=== PATIENT | female | born 1980 | race Caucasian/White ===

== ENCOUNTER → 2021-06-28 | Outpatient (CLI) | payer BC ==
--- NOTE | 2021-06-29 04:39 | MR ---
EXAMINATION TYPE: MR knee LT wo con DATE OF EXAM: 06/28/2021 COMPARISON: None HISTORY: Left knee pain, painful kneecap, and swelling for 2-4 weeks. Multiplanar multiecho imaging of the left knee without contrast. The anterior and posterior cruciate ligaments are intact. There is a mild knee joint effusion. There is vertical tear through the anterior horn of the lateral meniscus. There is large horizontal tear th rough the posterior horn of the medial meniscus extending to the inferior surface. The collateral lig aments are intact. There is some minimal subcutaneous edema around the knee. There is no evidence of a fracture. I see no focal bone destruction. IMPRESSION: Large horizontal tear of the posterior horn medial meniscus. Vertical tear through the anterior horn lateral meniscus. Knee joint effusion. No evidence of ligamentous tear.
== END | disposition home or self-care (01) ==
LOC: RADMRIMAIN 16:48
PROVIDERS: ATTEND Physician Assistant
DX: M23.322 Other meniscus derangements, posterior horn of medial meniscus, left knee (principal); M23.342 Other meniscus derangements, anterior horn of lateral meniscus, left knee

== ENCOUNTER 2022-03-30 22:44 | Emergency (ER) | payer BC ==
[2022-03-30 22:52] VITALS: TEMP 98.1
--- NOTE | 2022-03-31 03:05 | ED ---
Extremity Problem HPI - General Chief complaint: Extremity Problem,Nontraumatic Stated complaint: Adema feet Time Seen by Provider: 03/31/22 02:40 Source: patient, RN notes reviewed Mode of arrival: ambulatory - History of Present Illness Initial comments: This is a pleasant 41-year-old female who presents to the emergency department complaining of bilateral leg edema and some discomfort. Patient states she was camping and then woke up this morning her legs were swollen. Patient states she was sleeping in a tent. Patient states she was uncomfortable and getting up and going to the truck and sleeping in the truck for about 4 hours. At this point her feet were down. Patient also states that this happened last time she went camping. Patient does complain of some shortness of breath with exertion but states this going on since she had COVID-19 in November. Patient denies any fever or chills. No chest pain. No nausea or vomiting. No problems with balance urination. No chance of . Patient has no cardiac history. Patient is a cigarette smoker. Denies any hormone therapy. No control pills. No previous DVT. MD Complaint: extremity pain, extremity swelling - Related Data Previous Rx's Medication Instructions Recorded Nitrofurantoin Macrocrystal 100 mg PO BID #10 capsule 03/31/22 [Nitrofurantoin] Allergies Allergy/AdvReac Type Severity Reaction Status Date / Time No Known Allergies Allergy Verified 03/30/22 22:52 Review of Systems ROS Statement: Those systems with pertinent positive or pertinent negative responses have been documented in the HPI. ROS Other: All systems not noted in ROS Statement are negative. Past Medical History Past Medical History: No Reported History History of Any Multi-Drug Resistant Organisms: None Reported Past Surgical History: No Surgical Hx Reported Past Psychological History: No Psychological Hx Reported Smoking Status: Current every day smoker Past Alcohol Use History: Occasional Past Drug Use History: None Reported General Exam General appearance: obese Head exam: Present: atraumatic, normocephalic, normal inspection Eye exam: Present: normal appearance, PERRL, EOMI. Absent: scleral icterus, conjunctival injection, periorbital swelling ENT exam: Present: normal exam, mucous membranes moist Neck exam: Present: normal inspection. Absent: tenderness, meningismus, lymphadenopathy Respiratory exam: Present: normal lung sounds bilaterally. Absent: respiratory distress, wheezes, rales, rhonchi, stridor Cardiovascular Exam: Present: regular rate, normal rhythm, normal heart sounds. Absent: systolic murmur, diastolic murmur, rubs, gallop, clicks GI/Abdominal exam: Present: soft, normal bowel sounds. Absent: distended, tenderness, guarding, rebound, rigid Extremities exam: Present: normal inspection, full ROM, normal capillary refill, pedal edema (Patient has nonpitting edema of both lower extremities which is rather mild. Distal neurovascular status intact.). Absent: tenderness, joint swelling, calf tenderness Back exam: Present: normal inspection Neurological exam: Present: alert, oriented X3, CN II-XII intact Psychiatric exam: Present: normal affect, normal mood. Absent: anxious, flat affect, manic, homicidal ideation, suicidal ideation Skin exam: Present: warm, dry, intact, normal color, erythema (Macular erythema consistent with a mild first-degree sunburn). Absent: rash, cyanosis, diaphoretic, urticaria, vesicles, petechiae, pallor, mottled, abrasion Course Vital Signs 03/30/22 03/31/22 22:48 03:35 Temperature 98.1 F Pulse Rate 97 65 Respiratory 18 16 Rate Blood Pressure 128/88 127/77 O2 Sat by Pulse 100 95 Oximetry Medical Decision Making - Lab Data Result diagrams: 03/31/22 03:21 03/31/22 03:21 Lab Results 03/31/22 03/31/22 03/31/22 Range/Units 03:21 03:21 03:21 WBC 9.0 (3.8-10.6) k/uL RBC 4.50 (3.80-5.40) m/uL Hgb 13.8 (11.4-16.0) gm/dL Hct 42.7 (34.0-46.0) % MCV 95.0 (80.0-100.0) fL MCH 30.7 (25.0-35.0) pg MCHC 32.3 (31.0-37.0) g/dL RDW 13.5 (11.5-15.5) % Plt Count 287 (150-450) k/uL MPV 7.2 Neutrophils % 69 % Lymphocytes % 21 % Monocytes % 5 % Eosinophils % 2 % Basophils % 1 % Neutrophils # 6.3 (1.3-7.7) k/uL Lymphocytes # 1.9 (1.0-4.8) k/uL Monocytes # 0.4 (0-1.0) k/uL Eosinophils # 0.2 (0-0.7) k/uL Basophils # 0.1 (0-0.2) k/uL D-Dimer (<0.60) mg/L FEU Sodium 137 (137-145) mmol/L Potassium 4.4 (3.5-5.1) mmol/L Chloride 110 H (98-107) mmol/L Carbon Dioxide 21 L (22-30) mmol/L Anion Gap 6 mmol/L BUN 14 (7-17) mg/dL Creatinine 0.65 (0.52-1.04) mg/dL Est GFR (CKD-EPI)AfAm >90 (>60 ml/min/1.73 sqM) Est GFR (CKD-EPI)NonAf >90 (>60 ml/min/1.73 sqM) Glucose 109 H (74-99) mg/dL Calcium 8.5 (8.4-10.2) mg/dL Magnesium 1.9 (1.6-2.3) mg/dL Total Bilirubin 0.2 (0.2-1.3) mg/dL AST 18 (14-36) U/L ALT 15 (4-34) U/L Alkaline Phosphatase 71 (38-126) U/L Troponin I <0.012 (0.000-0.034) ng/mL NT-Pro-B Natriuret Pep pg/mL Total Protein 6.3 (6.3-8.2) g/dL Albumin 3.6 (3.5-5.0) g/dL Urine Color Urine Appearance (Clear) Urine pH (5.0-8.0) Ur Specific Bentley (1.001-1.035) Urine Protein (Negative) Urine Glucose (UA) (Negative) Urine Ketones (Negative) Urine Blood (Negative) Urine Nitrite (Negative) Urine Bilirubin (Negative) Urine Urobilinogen (<2.0) mg/dL Ur Leukocyte Esterase (Negative) Urine RBC (0-5) /hpf Urine WBC (0-5) /hpf Ur Squamous Epith Cells (0-4) /hpf Urine Bacteria (None) /hpf Hyaline Casts (0-2) /lpf Urine Mucus (None) /hpf 03/31/22 03/31/22 03/31/22 Range/Units 03:21 03:21 04:32 WBC (3.8-10.6) k/uL RBC (3.80-5.40) m/uL Hgb (11.4-16.0) gm/dL Hct (34.0-46.0) % MCV (80.0-100.0) fL MCH (25.0-35.0) pg MCHC (31.0-37.0) g/dL RDW (11.5-15.5) % Plt Count (150-450) k/uL MPV Neutrophils % % Lymphocytes % % Monocytes % % Eosinophils % % Basophils % % Neutrophils # (1.3-7.7) k/uL Lymphocytes # (1.0-4.8) k/uL Monocytes # (0-1.0) k/uL Eosinophils # (0-0.7) k/uL Basophils # (0-0.2) k/uL D-Dimer 0.48 (<0.60) mg/L FEU Sodium (137-145) mmol/L Potassium (3.5-5.1) mmol/L Chloride (98-107) mmol/L Carbon Dioxide (22-30) mmol/L Anion Gap mmol/L BUN (7-17) mg/dL Creatinine (0.52-1.04) mg/dL Est GFR (CKD-EPI)AfAm (>60 ml/min/1.73 sqM) Est GFR (CKD-EPI)NonAf (>60 ml/min/1.73 sqM) Glucose (74-99) mg/dL Calcium (8.4-10.2) mg/dL Magnesium (1.6-2.3) mg/dL Total Bilirubin (0.2-1.3) mg/dL AST (14-36) U/L ALT (4-34) U/L Alkaline Phosphatase (38-126) U/L Troponin I (0.000-0.034) ng/mL NT-Pro-B Natriuret Pep 131 pg/mL Total Protein (6.3-8.2) g/dL Albumin (3.5-5.0) g/dL Urine Color Yellow Urine Appearance Clear (Clear) Urine pH 5.5 (5.0-8.0) Ur Specific Bentley 1.029 (1.001-1.035) Urine Protein Trace H (Negative) Urine Glucose (UA) Negative (Negative) Urine Ketones Trace H (Negative) Urine Blood Small H (Negative) Urine Nitrite Positive H (Negative) Urine Bilirubin Negative (Negative) Urine Urobilinogen <2.0 (<2.0) mg/dL Ur Leukocyte Esterase Negative (Negative) Urine RBC 2 (0-5) /hpf Urine WBC 1 (0-5) /hpf Ur Squamous Epith Cells 1 (0-4) /hpf Urine Bacteria Many H (None) /hpf Hyaline Casts 6 H (0-2) /lpf Urine Mucus Few H (None) /hpf - EKG Data EKG Comments: EKG done at 3:33 AM and read by the ED attending physician reveals sinus rhythm with a rate of 81, normal intervals, normal axis, no acute ST or T-wave changes. Disposition Clinical Impression: Peripheral edema, Acute cystitis Disposition: HOME SELF-CARE Condition: Stable Instructions (If sedation given, give patient instructions): Edema (ED), Urinary Tract Infection in Women (ED) Additional Instructions: Elevate your legs as much as possible. Avoid salt. You may want to investigate and a pair of compression stockings. Urinalysis also shows a mild urinary tract infection. Take the antibiotics as directed and increase fluids. Prescriptions: Nitrofurantoin Macrocrystal [Nitrofurantoin] 100 mg PO BID #10 capsule Is patient prescribed a controlled substance at d/c from ED?: No Referrals: None,Stated [Primary Care Provider] - 1-2 days Time of Disposition: 04:33
[2022-03-31 03:28] LABS: Basophils # (A) 0.1 k/uL (0-0.2); Basophils % (A) 1 %; Eosinophils # (A) 0.2 k/uL (0-0.7); Eosinophils % (A) 2 %; HCT 42.7 % (34.0-46.0); HGB 13.8 gm/dL (11.4-16.0); Lymphocytes # (A) 1.9 k/uL (1.0-4.8); Lymphocytes % (A) 21 %; MCH 30.7 pg (25.0-35.0); MCHC 32.3 g/dL (31.0-37.0); Mean Platelet Volume 7.2; Monocytes # (A) 0.4 k/uL (0-1.0); Monocytes % (A) 5 %; Neutrophils # (A) 6.3 k/uL (1.3-7.7); Neutrophils % (A) 69 %; Platelet Count 287 k/uL (150-450); RDW 13.5 % (11.5-15.5)
[2022-03-31 03:41] LABS: ALT 15 U/L (4-34); AST 18 U/L (14-36); African American GFR (CKD) >90 (>60 ml/min/1.73 sqM); Albumin 3.6 g/dL (3.5-5.0); Alkaline Phosphatase 71 U/L (38-126); Anion Gap 6 mmol/L; Blood Urea Nitrogen 14 mg/dL (7-17); Calcium 8.5 mg/dL (8.4-10.2); Carbon Dioxide 21 mmol/L (22-30); Chloride 110 mmol/L (98-107); Glucose 109 mg/dL (74-99); Magnesium 1.9 mg/dL (1.6-2.3); Non-African American GFR(CKD) >90 (>60 ml/min/1.73 sqM); Potassium 4.4 mmol/L (3.5-5.1); Sodium 137 mmol/L (137-145); Total Bilirubin 0.2 mg/dL (0.2-1.3); Total Protein 6.3 g/dL (6.3-8.2)
--- NOTE | 2022-03-31 04:13 | XR ---
EXAMINATION TYPE: XR chest 2V DATE OF EXAM: 03/31/2022 COMPARISON: NONE HISTORY: Short of breath TECHNIQUE: 2 views FINDINGS: Heart and mediastinum are normal. Lungs are clear. Diaphragm is normal. There is mild thora cic dextroscoliosis. IMPRESSION: No active cardiopulmonary disease. Normal heart.
[2022-03-31 04:19] VITALS: BP 127/77; PULSE 65; RESP 16
[2022-03-31 04:50] LABS: Appearance,Urine Clear (Clear); Bacteria,Urine Many /hpf; Bilirubin,Urine Negative (Negative); Blood,Urine Small (Negative); Color,Urine Yellow; Glucose,Urine (UA) Negative (Negative); Hyaline Casts,Urine 6 /lpf (0-2); Ketones,Urine Trace (Negative); Leukocyte Esterase,Urine Negative (Negative); Mucus,Urine Few /hpf; Nitrite,Urine Positive (Negative); PH, Urine 5.5 (5.0-8.0); Protein,Urine Trace (Negative); RBC,Urine 2 /hpf (0-5); Specific Gravity,Urine 1.029 (1.001-1.035); Squamous Epithelial Cell,Urine 1 /hpf (0-4); Urobilinogen,Urine <2.0 mg/dL (<2.0); WBC,Urine 1 /hpf (0-5)
[2022-03-31] MEDS ORDERED: NITROFURANTOIN MONOHYD/M-CRYST 100 MG CAP PO STA (04:54)
== END 2022-03-31 05:05 | disposition home or self-care (01) ==
LOC: EC 22:44
DX: N30.00 Acute cystitis without hematuria (principal); R60.0 Localized edema; R06.02 Shortness of breath; E66.9 Obesity, unspecified; F17.200 Nicotine dependence, unspecified, uncomplicated; Z86.16 Personal history of COVID-19; Z68.42 Body mass index [BMI] 45.0-49.9, adult
CPT/HCPCS: 36415; 71046; 80053; 81001; 83735; 83880; 84484; 85025; 85379; 93005; 99285

== ENCOUNTER → 2022-08-20 | Outpatient (CLI) | payer BC ==
--- NOTE | 2022-08-21 10:15 | MM ---
Reason for Exam: Screening (asymptomatic). Baseline mammogram. Patient History: Menarche at age 14. Premenopausal. Last menstrual period: 08/19/2022 Risk Values: Tata 5 year model risk: 0.5%. NCI Lifetime model risk: 6.5%. Prior Study Comparison: Patient's first Mammogram. Tissue Density: There are scattered fibroglandular densities. Findings: Analyzed By CAD. A few loosely grouped and scattered benign-appearing round calcifications bilaterally are present. There is no suspicious group of microcalcifications or suspicious mass in either breast. Overall Assessment: Benign, BI-RAD 2 Management: Screening Mammogram of both breasts in 1 year. A clinical breast exam by your physician is recommended on an annual basis and results should be correlated with mammographic findings. Electronically signed and approved by: Eric Hackett M.D.
== END | disposition home or self-care (01) ==
LOC: RADMAMWWP 09:32
PROVIDERS: ATTEND Family Medicine
DX: Z12.31 Encounter for screening mammogram for malignant neoplasm of breast (principal)
CPT/HCPCS: 77067

== ENCOUNTER → 2022-12-10 | Outpatient (CLI) | payer BC ==
[2022-12-10 10:56] LABS: Basophils % (A) 1.4 %; Eosinophils % (A) 2.8 %; HCT 44.2 % (37.2-46.3); HGB 14.2 g/dL (12.0-15.0); Immature Grans, Automated 0.3 %; Lymphocytes # (A) 2.06 X 10*3/uL (0.90-5.00); Lymphocytes % (A) 28.7 %; MCH 29.9 pg (27.0-32.0); MCHC 32.1 g/dL (32.0-37.0); MCV 93.1 fL (80.0-97.0); Monocytes # (A) 0.59 X 10*3/uL (0.20-1.00); Monocytes % (A) 8.2 %; NRBC Per 100 WBC 0 /100 WBCS (0.0-0.0); Neutrophils % (A) 58.6 %; Platelet Count 274 X 10*3/uL (140-440); RBC 4.75 X 10*6/uL (4.10-5.20); RDW 12.7 % (11.5-14.5); WBC 7.17 X 10*3/uL (4.50-10.00)
[2022-12-10 11:03] LABS: Anion Gap 10.6 mmol/L (10.00-18.00); Carbon Dioxide 22.6 mmol/L (20.0-27.5); Potassium 4.5 mmol/L (3.5-5.5)
== END | disposition home or self-care (01) ==
LOC: LABWHC1 07:01
PROVIDERS: ATTEND Orthopaedic Surgery
DX: Z01.818 Encounter for other preprocedural examination (principal); M23.92 Unspecified internal derangement of left knee
CPT/HCPCS: 80051; 85025; 93005

== ENCOUNTER → 2022-12-10 | Outpatient (CLI) | payer BC ==
--- NOTE | 2022-12-10 07:35 | MR ---
EXAMINATION TYPE: MR knee RT wo con DATE OF EXAM: 12/10/2022 COMPARISON: Outside right knee x-ray November 26, 2022 HISTORY: R knee pain with locking and swelling for one month. TECHNIQUE: Multiplanar, multisequence images of the knee is performed without IV contrast. FINDINGS: MEDIAL MENISCUS: Globular increased signal posterior horn does not definitively extend to articular s urface. LATERAL MENISCUS: Anterior and posterior horns are intact without tear. CRUCIATE LIGAMENTS: The posterior cruciate ligament is intact and unremarkable. Anterior cruciate lig ament shows marked increased signal with fanning of fibers. COLLATERAL LIGAMENTS: The medial collateral ligament and lateral collateral ligament complex are inta ct and unremarkable. EXTENSOR MECHANISM: Visualized quadriceps and patellar tendons are intact. EFFUSION: Moderate size suprapatellar joint effusion with lateral extension. POPLITEAL CYST: No popliteal/adrian cyst. TRICOMPARTMENT SPACES: Moderate narrowing and spurring patellofemoral compartment. Mild to moderate n arrowing and spurring medial tibial femoral compartment. Mild to moderate spurring lateral tibial fem oral compartment. CARTILAGE: Some cartilaginous fissuring and loss medial tibiofemoral compartment with areas of full-t hickness defect along the distal medial femoral condyle. Chondromalacia patella with cartilaginous lo ss along the inferior posterior portion of the patellar pole. BONE MARROW SIGNAL: Heterogeneity. No suspicious focal osseous edema. OTHER: No additional significant abnormality is appreciated. IMPRESSION: 1. Fairly moderate tricompartment degenerative changes as detailed above somewhat prominent for patie nt's chronologic age. 2. Moderate-sized suprapatellar joint effusion. 3. Sprain injury/partial tearing of the anterior cruciate ligament. 4. Intrasubstance tear posterior horn medial meniscus, no definitive full-thickness meniscal tear.
== END | disposition home or self-care (01) ==
LOC: RADMRIMAIN 06:02
PROVIDERS: ATTEND Orthopaedic Surgery
DX: M17.11 Unilateral primary osteoarthritis, right knee (principal); M23.321 Other meniscus derangements, posterior horn of medial meniscus, right knee

== ENCOUNTER → 2023-02-12 | Outpatient (CLI) | payer BC ==
[2023-02-13 00:10] LABS: Anion Gap 12.8 mmol/L (10.00-18.00); Carbon Dioxide 20.6 mmol/L (20.0-27.5); Potassium 4.5 mmol/L (3.5-5.5)
[2023-02-13 01:26] LABS: Basophils # (A) 0.11 X 10*3/uL (0.00-0.10); Basophils % (A) 1.1 %; Eosinophils # (A) 0.14 X 10*3/uL (0.04-0.35); Eosinophils % (A) 1.4 %; HCT 46.9 % (37.2-46.3); HGB 14.9 g/dL (12.0-15.0); Immature Grans, Automated 0.3 %; Lymphocytes % (A) 30.1 %; MCH 30.1 pg (27.0-32.0); MCHC 31.8 g/dL (32.0-37.0); MCV 94.7 fL (80.0-97.0); Mean Platelet Volume 10.9 fL (9.5-12.2); Monocytes # (A) 0.81 X 10*3/uL (0.20-1.00); Monocytes % (A) 7.9 %; NRBC Per 100 WBC 0 /100 WBCS (0.0-0.0); Neutrophils % (A) 59.2 %; Platelet Count 303 X 10*3/uL (140-440); RBC 4.95 X 10*6/uL (4.10-5.20); RDW 12.9 % (11.5-14.5); WBC 10.29 X 10*3/uL (4.50-10.00)
== END | disposition home or self-care (01) ==
LOC: LABPAT 15:15
PROVIDERS: ATTEND Orthopaedic Surgery
DX: Z01.812 Encounter for preprocedural laboratory examination (principal); M23.91 Unspecified internal derangement of right knee
CPT/HCPCS: 80051; 85025

== ENCOUNTER 2023-02-25 09:46 | Day surgery (SDC) | payer BC ==
--- NOTE | 2023-02-24 14:30 | HP ---
HISTORY AND PHYSICAL DATE OF SURGERY: 02/25/2023. HISTORY OF PRESENT ILLNESS: Herminia Hdez is a 42-year-old patient seen with progressive right knee pain. We discussed options with her. She elected to proceed with right knee arthroscopy. Consent regarding the procedure was obtained. PAST MEDICAL HISTORY: Noncontributory. PAST SURGICAL HISTORY: Noncontributory. DAILY MEDICATIONS: Ibuprofen as needed. ALLERGIES: None reported. SOCIAL HISTORY: Smokes 1 pack of cigarettes daily. PHYSICAL EVALUATION OF THE RIGHT KNEE: Range of motion is 0-115 degrees. She has a mild effusion present, tenderness to medial joint line. Positive medial Elvis's. Ligaments are stable. Hip rotation is without pain. Distal neurovascular exam is intact. RADIOGRAPHS: Right knee radiographs reveal mild osteoarthritis. MRI right knee revealed medial meniscal tear, partial ACL tear, effusion, and moderate osteoarthritis. IMPRESSION: 1. Internal derangement of right knee with medial meniscal tear and partial ACL tear. 2. Right knee osteoarthritis. PLAN: Right knee arthroscopy with partial medial meniscectomy and debridement, partial ACL tear. MMODL / IJN: [id number] /
[~2023-02-25 09:46] MED LIST: DEXAMETHASONE SOD PHOSPHATE 4 MG/ML 1 ML VIAL IV ONE; HYDROmorphone 0.5 MG/0.5 ML SYRINGE IVP PRN; LACTATED RINGERS 1,000 ML IV SCH; LIDOCAINE 1% (10MG/ML) FOR IV START INTRADERMA PRN; MIDAZOLAM 2 MG/2 ML VIAL IV PRN; ONDANSETRON 4 MG/2 ML VIAL IVP ONE; ceFAZolin 3 GM in SODIUM CHLORIDE 0.9% 100 ML IVPB PRN
[2023-02-25] MEDS ORDERED: LACTATED RINGERS 1,000 ML IV ONE (10:15)
[2023-02-25] MEDS ORDERED: ONDANSETRON 4 MG/2 ML VIAL ONE (10:24)
[2023-02-25] MEDS ORDERED: BUPIVACAIN-EPI 0.25%-1:200,000 30 ML VIAL INTRAARTIC ONE ×2 (10:59→12:11)
[2023-02-25] MEDS ORDERED: MIDAZOLAM 2 MG/2 ML VIAL ONE (11:27)
[2023-02-25] MEDS ORDERED: LIDOCAINE 4% LTA KIT (4 ML) TOPICAL ONE (11:27)
[2023-02-25] MEDS ORDERED: LIDOCAINE 2% INJ 20 MG/ML (2 ML VIAL) ONE (11:27)
[2023-02-25] MEDS ORDERED: SUCCINYLCHOLINE CHLORIDE 200 MG/10 ML VIAL IV ONE (11:27)
[2023-02-25] MEDS ORDERED: fentaNYL (PF) 50 MCG/ML 2 ML AMP ONE (11:27)
[2023-02-25] MEDS ORDERED: PROPOFOL 10 MG/ML 20 ML VIAL IV ONE (11:27)
--- NOTE | 2023-02-25 12:31 | P.OP ---
Date of Procedure: 02/25/23 Preoperative Diagnosis: Internal derangement right knee Postoperative Diagnosis: 1. Tear medial and lateral meniscus right knee 2. Grade 4 chondromalacia medial femoral condyle right knee 3. ACL tear right knee 4. 3loose bodies right knee 5. Reactive synovitis medial, lateral and suprapatellar compartments right knee Procedure(s) Performed: 1. Arthroscopic partial medial and lateral meniscectomy right knee 2. Arthroscopic microfracture medial femoral condyle right knee 3. Arthroscopic debridement ACL tear right knee 4. Arthroscopic removal 3 loose bodies right knee 5. Arthroscopic partial synovectomy medial, lateral and suprapatellar com partments right knee Anesthesia: CLARISAA, local Surgeon: Chadd Gipson Estimated Blood Loss (ml): 10 Pathology: none sent Condition: stable Disposition: PACU Indications for Procedure: 42-year-old patient seen with progressive right knee pain. After having treatment options discussed, she elected to proceed with arthroscopy. Operative Findings: See description of procedure Description of Procedure: Patient was taken to the operative suite. Patient underwent a general anesthetic by the department of anesthesia. Patient was given preoperative antibiotics. The right lower extremity was placed in a well-padded arthroscopic leg ayoub. The right leg was prepped and draped in the normal sterile orthopedic fashion. A lateral parapatellar and suprapatellar incision was made. Trochars were inserted. Arthroscopy was initiated. Suprapatellar pouch revealed diffuse thick reactive synovitis. The patellofemoral joint appeared to articulate congruently. There was grade 1/2 chondral malacia of the patella without significant osteochondral flap tears being present.. The scope was guided into the medial gutter. No loose body or plica were identified. The sc ope was then guided into the medial compartment. A medial parapatellar incision was made. Trocar inserted followed by probe. There was a radial tear involving the posterior horn of the medial meniscus. There was grade 3/4 chondromalacia of the medial femoral condyle with some osteochondral flap tears as well as grade 2/3 chondromalacia tibial plateau. There was some thick reactive synovitis anteriorly. I performed a partial medial meniscectomy getting down to stable meniscal tissue. I performed a chondroplasty of the medial femoral condyle getting down to stable osteochondral tissue. I performed a partial synovectomy decompressing the thick reactive synovitis. The residual meniscus was stable. There was good decompression of the synovitis anteriorly. The residual osteochondral surface was stable. I did note an area of grade 4 chondromalacia involving the weightbearing surface of the medial femoral condyle measuring about 1 x 1 cm. I introduced a microfracture awl. I performed a microfracture to that area penetrating the bone with resultant bleeding at the microfracture site. I again probe the residual osteochondral surface and it was stable. Scope and probe were then guided into the intercondylar notch. There was significant tearing of the anterior cruciate ligament. I noted 3 loose bodies in the intercondylar notch area. I now introduced a loose body forceps I was able to remove all 3 loose bodies without difficulty. I induced a motorized shaver and I began debriding out the partial tearing of the anterior cruciate ligament. At this point I noted that even the residual fibers were very lax and incompetent. I now debrided out any residual incompetent and lax looking fibers which ultimately ended up with a complete ACL debridement. The PCL was probed and was found to be stable. The scope and probe were then guided into lateral compartment. There was a radial tear involving the midbody lateral meniscus. There was some reactive synovitis anteriorly. There was also some tearing of the anterior horn lateral meniscus present. I performed a partial lateral meniscectomy getting down to stable meniscal tissue. I performed a partial synovectomy decompressing the reactive synovitis. The residual meniscus was stable. There was grade 1/2 chondromalacia the tibial plateau with no tears. There was good decompression of the synovitis. The scope was in guided back into the suprapatellar compartment. I introduced a motorized shaver into the suprapatellar compartment. I debrided some piecemeal fragments of meniscus that I encountered. I performed a partial synovectomy. Shaver was now removed. There was good decompression of the synovitis. I took one more look around the entire knee, no residual debris. Instruments were now removed from the joint. The joint was infiltrated with .25% Marcaine. Steri-Strips were applied to the portal sites. Sterile dressings were applied. The patient was placed into a GIOVANNY hose. No tourniquet was utilized. The patient was awakened, transferred to a bed and taken to recovery stable satisfactory condition.
[2023-02-25] MEDS: MEPERIDINE 50 MG/ML SYRINGE IVP ONE ×2 (12:34→12:42)
[2023-02-25 12:37] VITALS: TEMP 96.9
[2023-02-25] MEDS ORDERED: HYDROcodone/APAP 5-325MG 1 EACH TAB PO ONE (13:12)
[2023-02-25] MEDS ORDERED: HYDROcodone/APAP 5-325MG 1 EACH TAB ONE (13:12)
[2023-02-25 13:17] VITALS: RESP 20
[2023-02-25 14:00] VITALS: BP 133/78; PULSE 72
== END 2023-02-25 14:20 | disposition home or self-care (01) ==
LOC: OR 09:46
PROVIDERS: ATTEND Orthopaedic Surgery
DX: S83.241A Other tear of medial meniscus, current injury, right knee, initial encounter (principal); S83.281A Other tear of lateral meniscus, current injury, right knee, initial encounter; S83.511A Sprain of anterior cruciate ligament of right knee, initial encounter; M94.261 Chondromalacia, right knee; M65.861 Other synovitis and tenosynovitis, right lower leg; M17.11 Unilateral primary osteoarthritis, right knee; M23.41 Loose body in knee, right knee; F17.210 Nicotine dependence, cigarettes, uncomplicated; Z79.1 Long term (current) use of non-steroidal anti-inflammatories (NSAID)
CPT/HCPCS: 81025; 29880; 29879; J2250; J0330; J1100; J2175; J0690; J2405; J3010; J2704; J2001